=== PATIENT | female | born 1955 | race American Indian/Alaskan Native ===

== ENCOUNTER 2017-10-21 11:01 | Inpatient (IN) | payer OTHER ==
[2017-10-21] MEDS ORDERED: ASPIRIN PO ONE (11:18)
[2017-10-21] MEDS ORDERED: XYLOCAINE 2% INFILTRATI ONE (11:24)
[2017-10-21] MEDS ORDERED: HEPARIN 10,000 UNITS/10 ML ONE (11:24)
[2017-10-21] MEDS ORDERED: NITROGLYCERIN SYRINGE 0 ML ONE (11:24)
[2017-10-21] MEDS ORDERED: SUBLIMAZE ONE (11:25)
[2017-10-21] MEDS ORDERED: NACL 0.9% 1000 ML 1,000 ML ONE ×2 (11:25→14:07)
[2017-10-21] MEDS ORDERED: VERSED ONE (11:25)
[2017-10-21] MEDS ORDERED: ANGIOMAX IV ONE (11:26)
--- NOTE | 2017-10-21 11:31 | Emergency Department Report ---
ED Chest Pain HPI - General Chief Complaint: Chest Pain Stated Complaint: C/P Time Seen by Provider: 10/21/17 11:23 Source: patient Mode of arrival: Ambulatory Limitations: No Limitations - History of Present Illness Initial Comments: Patient admits to chest pain that woke her up at about 6 AM. She stated she also did have some discomfort on but it wasn't as severe. She came to triage whereupon an EKG was performed. It was brought to me and it was immediately identified as a inferior wall STEMI. The patient was brought back directly from triage. A code STEMI was called. Patient tells me that her pain was associated with sweating this morning and some breathing difficulty. She is not in respiratory distress at this time. She has a history of hypertension and does smoke. She is not compliant with her blood pressure medications. She states that she was treated here approximately 10 years ago for what sounds like a possible demand myocardial infarction associated with dysfunctional uterine bleeding and profound anemia. However, [facility] does not provide access to this record. Nurse practitioner Aracelis of [facility] came to the emergency department quite directly. The patient is in route to the Carpet Cutter at this time. The EKGs had been tested to Dr. Dixon. Complaint: chest pain -: This morning Onset: awoke with symptoms Pain Location: substernal Severity: moderate, severe Quality: tightness Consistency: constant Improves With: nothing Worsens With: nothing re: dyspnea Aspirin use within the Past 7 Days: (0) No - Related Data Allergies Allergy/AdvReac Type Severity Reaction Status Date / Time No Known Allergies Allergy Verified 10/21/17 11:23 Heart Score - HEART Score History: Highly suspicious EKG: Significant ST-depression Age: 45-65 Risk factors: > 3 risk factors or hx of atherosclerotic disease Troponin: < normal limit HEART Score: 7 - Critical Actions Critical Actions: >7 pts:50-65% risk of adverse cardiac event. Early invasive measures ED Review of Systems ROS: Stated complaint: C/P Other details as noted in HPI Constitutional: denies: chills, fever Eyes: denies: eye pain, eye discharge, vision change ENT: denies: ear pain, throat pain Respiratory: denies: cough, shortness of breath, wheezing Cardiovascular: chest pain, dyspnea on exertion. denies: palpitations Endocrine: no symptoms reported Gastrointestinal: denies: abdominal pain, nausea, diarrhea Genitourinary: denies: urgency, dysuria, discharge Musculoskeletal: denies: back pain, joint swelling, arthralgia Skin: denies: rash, lesions Neurological: denies: headache, weakness, paresthesias Psychiatric: denies: anxiety, depression Hematological/Lymphatic: denies: easy bleeding, easy bruising ED Past Medical Hx - Past Medical History Previous Medical History?: Yes Hx Hypertension: Yes Hx Heart Attack/AMI: Yes - Surgical History Past Surgical History?: No - Social History Smoking Status: Current Every Day Smoker Substance Use Type: Alcohol ED Physical Exam - General Limitations: No Limitations General appearance: alert, in no apparent distress - Head Head exam: Present: atraumatic, normocephalic - Eye Eye exam: Present: normal appearance - ENT ENT exam: Present: mucous membranes moist - Neck Neck exam: Present: normal inspection - Respiratory Respiratory exam: Present: normal lung sounds bilaterally. Absent: respiratory distress - Cardiovascular Cardiovascular Exam: Present: regular rate, normal rhythm. Absent: systolic murmur, diastolic murmur, rubs, gallop - GI/Abdominal GI/Abdominal exam: Present: soft, normal bowel sounds. Absent: distended, tenderness, guarding, rebound - Extremities Exam Extremities exam: Present: normal inspection - Back Exam Back exam: Present: normal inspection - Neurological Exam Neurological exam: Present: alert, oriented X3, CN II-XII intact. Absent: motor sensory deficit - Psychiatric Psychiatric exam: Present: normal affect, normal mood - Skin Skin exam: Present: warm, dry, intact, normal color. Absent: rash ED Course - Reevaluation(s) Reevaluation #1: Code STEMI protocol. Patient sent to the Carpet Cutter. [facility] they will admit patient. 10/21/17 11:33 IMTIAZ score - Imtiaz Score Age > 65: (0) No Aspirin use within the Past 7 Days: (0) No 3 or more CAD Risk Factors: (1) Yes 2 or more Angina events in past 24 hrs: (0) No Known CAD with more than 50% Stenosis: (0) No Elevated Cardiac Markers: (0) No ST Deviation Greater than 0.5mm: (0) No IMTIAZ Score: 1 ED Medical Decision Making - EKG Data -: EKG Interpreted by Me - EKG Data Interpretation: other (inferior STEMI) - Medical Decision Making Heart score and IMTIAZ score are really not applicable here. Patient with acute ST elevation SC sent to wood preserving plant laborer. Critical care attestation.: If time is entered above; I have spent that time in minutes in the direct care of this critically ill patient, excluding procedure time. ED Disposition Clinical Impression: ST elevation myocardial infarction (STEMI) of inferior wall Disposition: 09 OP ADMIT IP TO THIS HOSP Is pt being admited?: Yes Does the pt Need Aspirin: Yes Condition: Stable Time of Disposition: 11:35
[2017-10-21 11:32] LABS: Basophils % (Auto) 0.2 % (0.0-1.8); Hematocrit 51.7 % (30.3-42.9); Hemoglobin 16.6 gm/dl (10.1-14.3); Lymphocytes # (Auto) 0.9 K/mm3 (1.2-5.4); Lymphocytes % (Auto) 6.3 % (13.4-35.0); Mean Corpuscular HGB Conc 32 % (30-34); Mean Corpuscular Hemoglobin 31 pg (28-32); Mean Corpuscular Volume 96 fl (79-97); Monocytes # (Auto) 0.5 K/mm3 (0.0-0.8); Monocytes % (Auto) 3.9 % (0.0-7.3); Platelet Count 245 K/mm3 (140-440); Red Blood Count 5.39 M/mm3 (3.65-5.03)
[2017-10-21] MEDS ORDERED: HEPARIN 10,000 UNITS/10 ML IV ONE ×2 (11:45→12:00)
[2017-10-21] MEDS ORDERED: HEPARIN IV ONE (11:46)
[2017-10-21 11:51] LABS: BUN/Creatinine Ratio 12; Blood Urea Nitrogen 6 mg/dL (7-17); Calcium 9.5 mg/dL (8.4-10.2); Hemolysis Index 32
[2017-10-21] MEDS ORDERED: AGGRASTAT DRIP (12.5 MG/250 ML) 12,500 MCG/250 ML BAG IV ONE (11:53)
[2017-10-21] MEDS ORDERED: INTROPIN DRIP 800 MG/D5W 250 ML IV ONE ×2 (12:10→15:00)
[2017-10-21] MEDS ORDERED: ZOFRAN IV PRN (12:19)
--- NOTE | 2017-10-21 12:26 | History and Physical Report ---
History of Present Illness Date of examination: 10/21/17 Date of admission: 10/21/2017 Chief complaint: chest pain History of present illness: The pt is a 61 YO female with a past medical history significant for HTN, tobacco use and ETOH use. She is previously unknown to our practice. She presented with c/o chest pain which woke her up at about 6 AM this morning. She describes the pain as a nonexertional, nonradiating left-sided pressure which is a 9/10 on a 0-10 numerical pain scale. She stated she also did have some discomfort on but it wasn't as severe. The pain is associated with some SOB and diaphoresis. She came to triage where an EKG was performed which revealed ST elevations in inferior leads and code STEMI was activated. Pt was taken to cardiac cath rn for emergent coronary angiography and subsequently underwent PCI with BMS to RCA. During cardiac catheterization, pt developed sinus bradycardia with hypotension and thus transvenous pacemaker was inserted and pt was initiated on dopamine gtt. Of note, pt reports a history of anemia associated with uterine bleeding with possible demand myocardial infarction 10 years ago at [facility]. She denies undergoing cardiac catheterization at that time. She states that she was evaluated by a bean picker and was told that no intervention was required. There are no records of this encounter in [facility]. Past History Past Medical History: hypertension Past Surgical History: No surgical history Social history: , lives with family, smoking, alcohol abuse. denies: prescription drug abuse Family history: no significant family history Medications and Allergies Allergies Allergy/AdvReac Type Severity Reaction Status Date / Time No Known Allergies Allergy Verified 10/21/17 11:23 Active Meds: Active Medications Aspirin (Ecotrin) 325 mg PO QDAY [facility] Ondansetron HCl (Zofran) 4 mg IV Q8H PRN PRN Reason: N/V unrelieved by Reglan Prasugrel (Effient) 10 mg PO QDAY [facility] Review of Systems Constitutional: no weight loss, no weight gain, no fever, no chills Ears, nose, mouth and throat: no ear pain, no nose pain, no sinus pressure, no sinus pain Cardiovascular: chest pain, shortness of breath, high blood pressure, no orthopnea, no palpitations, no rapid/irregular heart beat, no edema, no syncope , no lightheadedness, no leg edema, no decreased exercise tolerance Respiratory: no cough, no congestion, no wheezing, no pain on inspiration Gastrointestinal: no abdominal pain, no nausea, no vomiting, no diarrhea, no constipation, no change in bowel habits Genitourinary Female: no pelvic pain, no flank pain, no dysuria, no urinary frequency, no urgency Musculoskeletal: no neck stiffness, no neck pain, no shooting arm pain, no arm numbness/tingling, no low back pain, no shooting leg pain, no leg numbness/ tingling, no redness of joints Integumentary: no rash, no pruritis, no redness, no sores, no wounds Neurological: no head injury, no paralysis, no weakness, no parathesias, no numbness, no tingling, no seizures, no syncope Psychiatric: no anxiety Endocrine: no cold intolerance, no heat intolerance Hematologic/Lymphatic: no easy bruising, no easy bleeding, no lymphadenopathy Allergic/Immunologic: no urticaria, no wheezing, no persistent infections Physical Examination Vital Signs Temp Pulse Resp BP Pulse Ox 98.6 F 97 H 14 180/98 100 10/21/17 11:38 10/21/17 11:38 10/21/17 11:38 10/21/17 11:38 10/21/17 11:38 General appearance: mild distress, other (agitated) HEENT: Positive: PERRL Neck: Positive: neck supple, trachea midline Cardiac: Positive: Reg Rate and Rhythm, S1/S2 Lungs: Positive: clear to auscultation Neuro: Positive: Grossly Intact, Cranial Nerve 2-12 Intact Abdomen: Positive: Unremarkable, Soft, Active Bowel Sounds. Negative: Tender Skin: Positive: Clear. Negative: Rash, Wound Musculoskeletal: No Fluid Collection, No Pain, Normal Range of Motion Extremities: Absent: edema Results 10/21/17 11:24 10/21/17 11:24 CBC 10/21/17 Range/Units 11:24 WBC 13.6 H (4.5-11.0) K/mm3 RBC 5.39 H (3.65-5.03) M/mm3 Hgb 16.6 H (10.1-14.3) gm/dl Hct 51.7 H (30.3-42.9) % Plt Count 245 (140-440) K/mm3 Lymph # 0.9 L (1.2-5.4) K/mm3 [place] # 0.5 (0.0-0.8) K/mm3 Eos # 0.0 (0.0-0.4) K/mm3 Baso # 0.0 (0.0-0.1) K/mm3 Comprehensive Metabolic Panel 10/21/17 Range/Units 11:24 Sodium 145 (137-145) mmol/L Potassium 4.1 (3.6-5.0) mmol/L Chloride 105.8 (98-107) mmol/L Carbon Dioxide 24 (22-30) mmol/L BUN 6 L (7-17) mg/dL Creatinine 0.5 L (0.7-1.2) mg/dL Glucose 155 H (65-100) mg/dL Calcium 9.5 (8.4-10.2) mg/dL - Imaging and Cardiology Echo: pending Cardiac cath: report reviewed (PCI to RCA) EKG: report reviewed, image reviewed EKG interpretations - Telemetry EKG Rhythm: Sinus Rhythm - EKG Sinus rhythms and dysrhythmias: sinus rhythm Myocardial infarction: inferior ID (acute or rec Assessment and Plan Assessment: Acute inferior STEMI 10/21/2017 CAD s/p PCI to RCA with BMS Sinus bradycardia - TVP in situ Hypotension - requiring dopamine gtt H/o HTN Tobacco use / ETOH use - cessation encouraged Plan: s/p C with PCI of RCA. Admit to CCU. Consult foreign collection clerk, Dr. Thomas Cont dopamine gtt. Wean off for SBP <100. Consider discontinuation of TVP this afternoon if HR improves. Obtain echo. Initiate DAPT with ASA 325 and effient. Initiate lipitor. Obtain lipid panel in AM. Hold BB and ACEI/ARB at this time given SB and hypotension. Assessment and plan reviewed with pt and pt's at bedside. The patient has been seen in conjunction with Dr. Tesfaye Dixon who agrees with the assessment and plan of care.
[2017-10-21] MEDS ORDERED: EFFIENT PO ONE ×2 (12:33→12:36)
[2017-10-21] MEDS ORDERED: INTROPIN DRIP 800 MG/D5W 250 ML 800 MG/250 ML BAG IV SCH (13:00)
[2017-10-21] MEDS ORDERED: NACL 0.9% 1000 ML 1,000 ML IV SCH (13:00)
--- NOTE | 2017-10-21 15:18 | Event Note ---
Patient is seen again to see whether temporary pace maker can discontinued. SR at 88/m BP 160/90. 4 beat run of VT Isolated PVCs. Plan; DC pacer. Start Beta deisi. Dr. Montemayor.
--- NOTE | 2017-10-21 16:10 | Consultation ---
History of Present Illness Consult date: 10/21/17 Requesting physician: GLADYS VARGAS Reason for consult: other (STEMI) History of present illness: PULMONARY/CCM CONSULT NOTE (Full dictation # [id number]) Please see dictated notes for full details Past History Past Medical History: hypertension Past Surgical History: No surgical history Social history: , lives with family, smoking, alcohol abuse. denies: prescription drug abuse Family history: no significant family history Medications and Allergies Allergies Allergy/AdvReac Type Severity Reaction Status Date / Time No Known Allergies Allergy Verified 10/21/17 11:23 Home Medications Medication Instructions Recorded Confirmed Last Taken Type No Known Home Medications [No 10/21/17 10/21/17 Unknown History Reported Home Medications] Active Meds: Active Medications Aspirin (Ecotrin) 325 mg PO QDAY [facility] Atorvastatin Calcium (Lipitor) 80 mg PO QHS [facility] Dopamine HCl/Dextrose (Intropin Drip 800 Mg/D5w 250 Ml) 800 mg in 250 mls @ 2.807 mls/hr IV TITR [facility]; 2 MCG/KG/MIN PRN Reason: Protocol Sodium Chloride (Nacl 0.9% 1000 Ml) 1,000 mls @ 50 mls/hr IV DIRECT [facility] Lisinopril (Zestril) 20 mg PO QDAY [facility] Metoprolol Tartrate (Lopressor) 25 mg PO BID [facility] Ondansetron HCl (Zofran) 4 mg IV Q8H PRN PRN Reason: N/V unrelieved by Reglan Prasugrel (Effient) 10 mg PO QDAY [facility] Physical Examination Vital signs: Vital Signs Temp Pulse Resp BP Pulse Ox 98.6 F 97 H 14 180/98 100 10/21/17 11:38 10/21/17 11:38 10/21/17 11:38 10/21/17 11:38 10/21/17 11:38 Results - Laboratory Findings CBC and BMP: 10/21/17 11:24 10/21/17 11:24 Abnormal lab findings: Abnormal Labs 10/21/17 10/21/17 10/21/17 11:24 11:24 11:47 WBC 13.6 H RBC 5.39 H Hgb 16.6 H Hct 51.7 H RDW 16.0 H Lymph % (Auto) 6.3 L Lymph # 0.9 L Seg Neutrophils % 89.6 H Seg Neutrophils # 12.2 H Activated Clotting Time 191 H BUN 6 L Creatinine 0.5 L Glucose 155 H Troponin T 10/21/17 10/21/17 12:05 14:41 WBC RBC Hgb Hct RDW Lymph % (Auto) Lymph # Seg Neutrophils % Seg Neutrophils # Activated Clotting Time 345 H BUN Creatinine Glucose Troponin T 2.430 H* D
--- NOTE | 2017-10-21 16:17 | Cardiac Catherization Report ---
INDICATION FOR PROCEDURE: The patient is a pleasant 61-year-old female who presents with inferior ST elevation myocardial infarction. STEMI protocol initiated. The patient loaded with aspirin and heparin. The patient referred for urgent left heart catheterization via STEMI protocol. PROCEDURE IN DETAIL: The patient was brought to the yard labor supervisor in urgent prepped and draped in sterile fashion, 8 mL of 2% lidocaine used to anesthetize the right groin. Access was achieved in the right common femoral artery and right femoral vein via modified Seldinger techniques under fluoroscopic guidance. At this point, the patient is bradycardic and mildly hypertensive. We placed a balloon tipped temporary venous pacemaker under fluoroscopic guidance in the apex of the right ventricle, started pacing. Had a backup heart rate of 60. Angiography was performed. A JL 3-1/2 catheter was used in the left main. No dampening or ventricularization. Cineangiography performed in all projections. A JR4 guide used to engage the right coronary. Cineangiography performed. DATA: The patient remained in a paced rhythm with a backup rate of 50%, aortic pressure in the 120s. ANGIOGRAPHY: Left main reveals no significant disease, bifurcates left anterior descending and left circumflex. LAD is a moderate sized vessel, courses anterior intergroove, wraps around the apex. Scattered luminal irregularities 40% to 50% mid LAD, but very small vessel. May be a component of spasm here. Left circumflex is a moderate sized vessel, courses AV groove. No significant disease. Right coronary is flush occluded in the mid segment with angiographic characteristics of atherothrombosis. At this point, additional heparin was given. Abnormal ACT confirmed. The patient loaded with aspirin. We used a [place] wire to cross the lesion without difficulty. Resumption of FROY 3 flow 2.5 x 12 balloon to predilate the lesion with a 2.75 x 18 Integrity bare-metal stent deployed at 9 JAMAR for 30 seconds. Excellent angiographic result. Intravascular ultrasound reveals a well-opposed well expanded stent. Normal proximally. No occlusive disease proximally. No dissection at the proximal or distal edge of the stent. CONCLUSIONS: 1. Moderate diffuse small vessel disease distally. 2. Left ventriculography performed with the same guide reveals basal inferior hypokinesis with preserved ejection fraction overall of 50% to 55%. No evidence of aortic stenosis. At this point, the procedure was aborted. The patient is chest pain-free and clinically improved. CONCLUSIONS: 1. Severe single vessel disease with a atherothrombotic occlusion of the mid right coronary in the setting of an inferior ST elevation myocardial infarction, late presentation. 2. Successful IVUS guided primary PCI with placement of bare metal stent 2.75 x 18 Integrity with excellent final angiographic and ultrasonographic results. Moderate diffuse small vessel disease in the distal right coronary. Mild nonobstructive disease in the left system. 3. Left ventriculography revealed a basal inferior dyskinesis with estimated ejection fraction of 50% to 55%. 4. Successful right femoral venous access and transvenous pacemaker placed under fluoroscopic guidance. At this point, the patient is clinically stable on low-dose dopamine with her own rhythm, blood pressure is normalized. We will pull sheath once the ACT is less than 170. Consider pulling pacemaker later this afternoon, high dose statin therapy, aspirin and Effient. The patient received 1 bolus of Aggrastat due to thrombus burden. The patient is clinically vastly improved. We will watch her closely in the hospital. JOB# [id number] SBRadha/NTS
[2017-10-21] MEDS: LOPRESSOR PO SCH ×2 (16:25→22:47)
[2017-10-21] MEDS: ZESTRIL PO SCH (16:37)
[2017-10-21 16:38] LABS: Chol/HDL Ratio 4.94 %
--- NOTE | 2017-10-22 02:51 | XRay Report ---
FINAL REPORT EXAM: XR CHEST 1V AP HISTORY: post pci TECHNIQUE: A portable upright view the chest was obtained. FINDINGS: The heart size is at the upper limits of normal. The lungs are clear. Pleural fluid is not seen. There is no evidence of congestion. The bones and soft tissues do not show any acute changes. IMPRESSION: No active chest disease.
[2017-10-22 05:51] LABS: Basophils % (Auto) 0.3 % (0.0-1.8); Eosinophils % (Auto) 0.2 % (0.0-4.3); Hemoglobin 14.4 gm/dl (10.1-14.3); Lymphocytes # (Auto) 2.5 K/mm3 (1.2-5.4); Lymphocytes % (Auto) 18.5 % (13.4-35.0); Mean Corpuscular HGB Conc 32 % (30-34); Mean Corpuscular Hemoglobin 30 pg (28-32); Mean Corpuscular Volume 95 fl (79-97); Monocytes # (Auto) 1.1 K/mm3 (0.0-0.8); Monocytes % (Auto) 8.2 % (0.0-7.3); Platelet Count 224 K/mm3 (140-440); Red Blood Count 4.74 M/mm3 (3.65-5.03)
[2017-10-22 06:09] LABS: Creatine Kinase MB 256.7 ng/mL (0.0-4.0)
[2017-10-22 06:11] LABS: Albumin 3.8 g/dL (3.9-5); BUN/Creatinine Ratio 16; Blood Urea Nitrogen 8 mg/dL (7-17); Hemolysis Index 171
[2017-10-22 06:52] LABS: Alanine Aminotransferase 50 units/L (7-56); Calcium 8.8 mg/dL (8.4-10.2)
[2017-10-22] MEDS: ECOTRIN PO SCH (09:14)
[2017-10-22] MEDS: EFFIENT PO SCH (09:14)
[2017-10-22] MEDS: ZESTRIL PO SCH (09:14)
[2017-10-22] MEDS: LOPRESSOR PO SCH ×2 (09:14→21:37)
[2017-10-22] MEDS: PEPCID PO SCH (09:14)
--- NOTE | 2017-10-22 10:21 | Progress Note ---
Assessment and Plan Assessment: Acute inferior STEMI 10/21/2017 CAD s/p PCI to RCA with BMS Transient sinus bradycardia - TVP d/c'd; resolved Transient hypotension - resolved H/o HTN Tobacco use / ETOH use - cessation encouraged Plan: Currently stable cardiac status. Tx pt out of CCU to telemetry. Likely discharge home in AM. Await echo. Cont DAPT with ASA 325 and effient. Cont lopressor and lipitor. Pt refusing lisinopril - she states that she has a friend who experienced an allergic reaction to this medication and she has also been reading about the side effects of this medication online and is not comfortable taking this medication. Will initiate losartan. Assessment and plan reviewed with pt at bedside. The patient has been seen in conjunction with Dr. Gan who agrees with the assessment and plan of care. Subjective Date of service: 10/22/17 Principal diagnosis: STEMI Interval history: Pt resting comfortably in bed, no current complaints. VSS. Tele reviewed with no acute events overnight. Objective Last Vital Signs Temp 98.3 F 10/22/17 08:00 Pulse 62 10/22/17 05:01 Resp 24 10/22/17 05:01 BP 139/68 10/22/17 05:01 Pulse Ox 97 10/22/17 05:01 - Physical Examination General: No Apparent Distress HEENT: Positive: PERRL Neck: Positive: neck supple, trachea midline Cardiac: Positive: Reg Rate and Rhythm, S1/S2 Lungs: Positive: clear to auscultation Neuro: Positive: Grossly Intact, Cranial Nerve 2-12 Intact Abdomen: Positive: Unremarkable, Soft, Active Bowel Sounds. Negative: Tender Skin: Positive: Clear. Negative: Rash, Wound Incision: Cardiac Cath Site (right groin, c/d/i, no evidence of bleeding or hematoma) Musculoskeletal: No Fluid Collection, No Pain, Normal Range of Motion Extremities: Absent: edema - Labs and Meds Cardiac Enzymes 10/22/17 Range/Units 04:56 AST 259 H (5-40) units/L CK-MB (CK-2) 256.7 H (0.0-4.0) ng/mL Lipids 10/21/17 Range/Units 14:41 Triglycerides 94 (2-149) mg/dL Cholesterol 188 (50-199) mg/dL HDL Cholesterol 38 L (40-59) mg/dL Cholesterol/HDL Ratio 4.94 % CBC 10/21/17 10/22/17 Range/Units 11:24 04:56 WBC 13.6 H 13.7 H (4.5-11.0) K/mm3 RBC 5.39 H 4.74 (3.65-5.03) M/mm3 Hgb 16.6 H 14.4 H (10.1-14.3) gm/dl Hct 51.7 H 45.0 H D (30.3-42.9) % Plt Count 245 224 (140-440) K/mm3 Lymph # 0.9 L 2.5 (1.2-5.4) K/mm3 [place] # 0.5 1.1 H (0.0-0.8) K/mm3 Eos # 0.0 0.0 (0.0-0.4) K/mm3 Baso # 0.0 0.0 (0.0-0.1) K/mm3 Comprehensive Metabolic Panel 10/21/17 10/22/17 Range/Units 11:24 04:56 Sodium 145 142 (137-145) mmol/L Potassium 4.1 4.9 (3.6-5.0) mmol/L Chloride 105.8 105.7 (98-107) mmol/L Carbon Dioxide 24 22 (22-30) mmol/L BUN 6 L 8 (7-17) mg/dL Creatinine 0.5 L 0.5 L (0.7-1.2) mg/dL Glucose 155 H 96 (65-100) mg/dL Calcium 9.5 8.8 (8.4-10.2) mg/dL AST 259 H (5-40) units/L ALT 50 (7-56) units/L Alkaline Phosphatase 71 (35-129) units/L Total Protein 6.4 (6.3-8.2) g/dL Albumin 3.8 L (3.9-5) g/dL - Imaging and Cardiology EKG: report reviewed, image reviewed Echo: pending Cardiac cath: report reviewed (PCI to RCA) - Telemetry EKG Rhythm: Sinus Rhythm - EKG Sinus rhythms and dysrhythmias: sinus rhythm Myocardial infarction: inferior IN (acute or rec
--- NOTE | 2017-10-22 13:49 | Event Note ---
Date: 10/22/17 The pt is a 61 YO female with a past medical history significant for HTN, tobacco use and ETOH use. She is previously unknown to our practice. She presented with c/o chest pain which woke her up at about 6 AM this morning. She describes the pain as a nonexertional, nonradiating left-sided pressure which is a 9/10 on a 0-10 numerical pain scale. She stated she also did have some discomfort on but it wasn't as severe. The pain is associated with some SOB and diaphoresis. She came to triage where an EKG was performed which revealed ST elevations in inferior leads and code STEMI was activated. Pt was taken to laborer for emergent coronary angiography and subsequently underwent PCI with BMS to RCA. During cardiac catheterization, pt developed sinus bradycardia with hypotension and thus transvenous pacemaker was inserted and pt was initiated on dopamine infusion. Patient is s/p PCI and in the ICU. She denies any chest pain. Feels much better. Had breakfast. Patient was seen and examined. Vitals, labs, medications, chart reviewed. No acute overnight events. General: No Apparent Distress HEENT: Positive: PERRL Neck: Positive: neck supple, trachea midline Cardiac: Positive: Reg Rate and Rhythm, S1/S2 Lungs: Positive: clear to auscultation Neuro: Positive: Grossly Intact, Cranial Nerve 2-12 Intact Abdomen: Positive: Unremarkable, Soft, Active Bowel Sounds. Negative: Tender Skin: Positive: Clear. Negative: Rash, Wound Incision: Cardiac Cath Site (right groin, c/d/i, no evidence of bleeding or hematoma) Musculoskeletal: No Fluid Collection, No Pain, Normal Range of Motion Extremities: Absent: edema A/P -Inferior wall [place] s/p PCI -Tobacco abuse disorder Cardioprotective measures Smoking cessation counselling done at the bedside Stable for transfer to telemetry
[2017-10-22] MEDS: COZAAR PO SCH (17:49)
--- NOTE | 2017-10-22 21:12 | Consultation ---
PULMONARY CRITICAL CARE CONSULT NOTE CONSULTING PHYSICIAN: ____ for Dr. Dixon. REASON FOR CONSULTATION: Acute ST elevation myocardial infarction, status post PTCA and stenting. CHIEF COMPLAINT AND HISTORY OF PRESENT ILLNESS: The patient is a 61-year-old obese -Citizen Of [place] female who states that in the past couple of days, she has had 1 or 2 burning sensations in her chest, thought nothing about it. She woke up this morning with intense burning sensation on her chest. She tried to get up and found she was weak and dizzy. She got back down, called EMS. EKG revealed an inferior wall ST elevation [place]. Code STEMI was called. She was brought into the Emergency Room and taken ____ to the lab instructor. In the lab instructor, coronary angiography revealed RCA occlusion. She received PCI with a bare metal stent to the RCA. She had episodes of sinus bradycardia with hypotension for which a transvenous pacemaker was inserted. She was also initiated on a dopamine drip. Post procedure, ICU admission was requested. When I stopped by to see her, she was doing better. Pain was gone. She had just been weaned off the dopamine drip. She was able to take the p.o. medication she had been given; however, she refused taking an angiotensin converting enzyme because she was scared of a possible angioedema type reaction. She admits to a 10+ pack year tobacco smoking history and plans to quit smoking. Her last cigarette was yesterday. This really is as much of the history of presentation as I have. PAST MEDICAL HISTORY: Hypertension. She is obese. PAST SURGICAL HISTORY: Denies. MEDICATIONS: She was on at the time I stopped by to see were reviewed, pertinent medications included aspirin 325 mg p.o. daily, Lipitor 80 mg p.o. at bedtime, Zestril 20 mg p.o. daily, Lopressor 25 mg p.o. b.i.d., Zofran 4 mg IV every 8 hours p.r.n., and prasugrel 10 mg p.o. daily. ALLERGIES: No known drug allergies. DIET: Obese lady. She denies acute weight loss or gain in the preceding few weeks to months. SOCIAL HISTORY: Lives in the community about a [id number] tobacco smoking history. Denies alcohol, illicit drug use or abuse, but she does admit to taking alcohol. FAMILY HISTORY: Otherwise noncontributory. REVIEW OF SYSTEMS: No loss of consciousness. She did have the dizziness. No new onset seizures. No new onset focal weakness. No gross hematochezia or melena. No gross hematuria, no hematemesis, no hemoptysis or other bleeding diathesis. A complete 13-system review of systems was obtained. Pertinent positives and/or negatives as in body of the history above, otherwise, they are noncontributory. PHYSICAL EXAMINATION: VITAL SIGNS: At presentation, she was afebrile, temperature 98.6 degrees Fahrenheit, pulse of 97, respiratory rate of 14, blood pressure 180/98, oxygen sats 100%, inspired oxygen concentration was not recorded. GENERAL: She is an elderly looking -Citizen [place] female, normocephalic, atraumatic, looks her stated age, talking to me in full sentences, in no significant respiratory distress. HEAD, EYES, EARS, NOSE AND THROAT: She is anicteric. No conjunctival erythema. Oropharynx is a Mallampati #4 oropharynx. No significant posterior oropharyngeal erythema or pallor. Oropharynx is moist. NECK: Grossly, no jugular venous distention. Grossly, no palpable lymph nodes in the supraclavicular or submandibular lymph node chains. LUNGS: Auscultation of both lung bailey is unremarkable. Lungs are clear bilaterally. HEART: Heart sounds 1 and 2 are heard, regular rate and rhythm at the time of my evaluation. No rubs, no murmurs. ABDOMEN: Soft, full, bowel sounds are positive, nontender. EXTREMITIES: Without overt digital clubbing, cyanosis, or pedal edema. Dorsalis pedis pulses are palpable bilaterally. NEUROLOGIC: Pupils are equal, round, reactive to light. Extraocular muscles and movements are intact. She moves all 4 extremities spontaneously. The skin is of normal turgor, no tenting, no cellulitis, no rash. DIAGNOSTIC DATA: Chest x-ray, I do not have a chest x-ray for review that is pending. LABORATORY DATA: From my review, admission white cell count 13,600, hemoglobin 16.6, hematocrit 51.7, platelet count 245. Serum sodium was 141, potassium 4.1, chloride 106, bicarbonate 24, BUN 6, creatinine 0.5, glucose 155. Troponin so far has peaked at 2.43, it was within normal limits at presentation. ASSESSMENT: 1. Acute ST elevation myocardial infarction, inferior ST elevation. 2. Coronary artery disease. 3. Morbid obesity. 4. Uncontrolled hypertension. 5. Tobacco use disorder. 6. Episode of hypotension requiring dopamine. 7. Symptomatic bradycardia, status post transvenous pacemaker. PLAN: Admit to the Intensive Care Unit and observe overnight. I have asked the nurse to get in touch with the felt cementer, as blood pressure is still high, and she is refusing the lisinopril, see if another medication can be substituted. Oxygen will be given as necessary to keep sats greater than or equal to about 92-94%. Aspiration precautions will be maintained. Sleep Clinic evaluation has been recommended in light of the possibility of obstructive sleep apnea in the setting of coronary artery disease and cardiomyopathy. Tobacco cessation has been strongly counseled. She will be started on GI prophylaxis. Flu and pneumonia vaccination will be per protocol. She will also be started on DVT prophylaxis once cleared by Cardiology. Thank you very much for the consult. We will follow along. We will make further recommendations as picture progresses/becomes clearer. JOB# [id number] JAKE/CUATE
[2017-10-23] MEDS: ECOTRIN PO SCH (09:15)
[2017-10-23] MEDS: COZAAR PO SCH (09:15)
[2017-10-23] MEDS: EFFIENT PO SCH (09:16)
[2017-10-23] MEDS: LOPRESSOR PO SCH (09:16)
[2017-10-23] MEDS: PEPCID PO SCH (09:16)
--- NOTE | 2017-10-23 11:50 | Progress Note ---
Assessment and Plan Assessment: Acute inferior STEMI 10/21/2017 CAD s/p PCI to RCA with BMS Transient sinus bradycardia - TVP d/c'd; resolved Transient hypotension - resolved HTN Tobacco use / ETOH use - cessation encouraged Plan: Currently stable cardiac status. Optimize anti-hypertensive regimen. Convert Effient to Plavix as pt is self pay. Give 150mg loading dose of Plavix x1 dose now and initiate 75mg daily from tomorrow. Possible d/c home this afternoon pending BPs are optimized. Assessment and plan reviewed with pt at bedside. The patient has been seen in conjunction with Dr. Gan who agrees with the assessment and plan of care. Subjective Date of service: 10/23/17 Principal diagnosis: STEMI Interval history: Pt resting comfortably in bed, no current complaints. BPs elevated. Objective Last Vital Signs Temp 99.3 F 10/22/17 23:45 Pulse 78 10/23/17 09:16 Resp 18 10/22/17 23:45 BP 169/83 10/23/17 09:16 Pulse Ox 97 10/22/17 23:45 - Physical Examination General: No Apparent Distress HEENT: Positive: PERRL Neck: Positive: neck supple, trachea midline Cardiac: Positive: Reg Rate and Rhythm, S1/S2 Lungs: Positive: clear to auscultation Neuro: Positive: Grossly Intact, Cranial Nerve 2-12 Intact Abdomen: Positive: Unremarkable, Soft, Active Bowel Sounds. Negative: Tender Skin: Positive: Clear. Negative: Rash, Wound Incision: Cardiac Cath Site (right groin, c/d/i, no evidence of bleeding or hematoma) Musculoskeletal: No Fluid Collection, No Pain, Normal Range of Motion Extremities: Absent: edema - Imaging and Cardiology EKG: report reviewed, image reviewed Echo: report reviewed (EF 50-55%, basal inferior wall segment is dyskinetic, trace MR, mild TR) Cardiac cath: report reviewed (PCI to RCA) - Telemetry EKG Rhythm: Sinus Rhythm - EKG Sinus rhythms and dysrhythmias: sinus rhythm Myocardial infarction: inferior SC (acute or rec
[2017-10-23] MEDS ORDERED: PLAVIX PO ONE (12:10)
[2017-10-23 12:33] VITALS: BP 157/75
[2017-10-23] MEDS ORDERED: COZAAR PO ONE (12:47)
[2017-10-23] MEDS ORDERED: PLAVIX PO NR (13:00)
--- NOTE | 2017-10-23 13:30 | Discharge Summary ---
Providers - Providers Date of Admission: 10/21/17 12:19 Date of discharge: 10/23/17 Attending physician: YOLA DIXON 10/21/17 Consult to Cardiac Rehabilitation [CONS] Routine Reason For Exam: post pci 10/21/17 12:22 Consult to Physician [CONS] Routine Consulting Provider: JOSE LITTLE Reason For Exam: CCU care s/p STEMI Place consult to:: Dr. Damon aware prior to pt. arrival CCU per .Tracy.BSA Notified:: 1919 Phone number called:: In person Was contact made?: Yes If yes, spoke with:: Dr. Damon Time called:: 19:20 Comment:: Dr. 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 EKG showed ST elevations in inferior leads and she was taken to research laboratory specialist for emergent coronary angiography per STEMI protocol. She successfully underwent LHC with PCI to RCA with BMS. She transiently experienced sinus bradycardia and hypotension and required TVP and dopamine gtt which were later discontinued after issues resolved. She remained clinically and hemodynamically stable throughout the remainder of her hospitalization and is medically stable for discharge home today. She is to follow up with Dr. Tesfaye Dixon in our [place] office on 11/01/2017 @ 2:00PM. Disposition: DC-01 TO HOME OR SELFCARE - Discharge Diagnoses (1) ST elevation myocardial infarction (STEMI) of inferior wall Status: Acute (2) CAD (coronary artery disease) Status: Chronic (3) Stented coronary artery Status: Chronic (4) HTN (hypertension) Status: Chronic (5) Tobacco use Status: Chronic Core Measure Documentation - Palliative Care Palliative Care/ Comfort Measures: Not Applicable - Core Measures Any of the following diagnoses?: acute FL - Acute FL Discharge Requirements Aspirin at discharge: Yes LOUIS/ARB for LVSD if EF <40%: Yes Beta deisi at discharge: Yes Statin for LDL = or >100 mg/dl on DC: Yes Exam - Constitutional Vitals: Temp Pulse Resp BP Pulse Ox 98.6 F 74 18 157/75 98 10/23/17 08:47 10/23/17 12:31 10/23/17 08:47 10/23/17 12:31 10/23/17 08:47 General appearance: Present: no acute distress - EENT Eyes: Present: PERRL, EOM intact ENT: hearing intact, clear oral mucosa, dentition normal - Neck Neck: Present: supple, normal ROM - Respiratory Respiratory effort: normal Respiratory: bilateral: CTA - Cardiovascular Rhythm: regular Heart Sounds: Present: S1 & S2 - Extremities Extremities: no ischemia, pulses intact, pulses symmetrical, No edema, normal temperature, normal color Peripheral Pulses: within normal limits - Abdominal General gastrointestinal: Present: soft, non-tender - Integumentary Integumentary: Present: clear, warm, dry - Musculoskeletal Musculoskeletal: strength equal bilaterally - Psychiatric Psychiatric: appropriate mood/affect Plan Activity: advance as tolerated Diet: low fat, low cholesterol, low salt Wound: open to air, keep clean and dry, per your surgeon's advice Follow up with: PRIMARY CARE, [Primary Care Provider] - 7 Days YOLA DIXON MD [Staff Physician] - 7 Days (Dr. Tesfaye Dixon in our [place] office on 11/01/2017 @ 2:00PM.) Prescriptions: AtorvaSTATin [Lipitor] 80 mg PO QHS #30 tablet Clopidogrel [Plavix] 75 mg PO QDAY #30 tablet Losartan [Cozaar] 25 mg PO QDAY #30 tablet Metoprolol [Lopressor TAB] 25 mg PO BID #60 tablet
[2017-10-24] MEDS ORDERED: COZAAR PO SCH (10:00)
[2017-10-24] MEDS ORDERED: PLAVIX PO SCH (10:00)
== END 2017-10-23 15:45 | disposition home or self-care (01) | DRG 249 ==
LOC: ED 11:01 → CATH 11:56 → CC1 12:19 → 4A 10-22 15:04
PROVIDERS: ADMIT Internal Medicine; ATTEND Internal Medicine
PROC: 02703DZ Dilation of Coronary Artery, One Artery with Intraluminal Device, Percutaneous Approach (ICD-10-PCS; principal; 2017-10-21)
PROC: 4A023N7 Measurement of Cardiac Sampling and Pressure, Left Heart, Percutaneous Approach (ICD-10-PCS; 2017-10-21)
PROC: B2111ZZ Fluoroscopy of Multiple Coronary Arteries using Low Osmolar Contrast (ICD-10-PCS; 2017-10-21)
PROC: B2151ZZ Fluoroscopy of Left Heart using Low Osmolar Contrast (ICD-10-PCS; 2017-10-21)
PROC: 5A1223Z Performance of Cardiac Pacing, Continuous (ICD-10-PCS; 2017-10-21)
PROC: B241ZZ3 Ultrasonography of Multiple Coronary Arteries, Intravascular (ICD-10-PCS; 2017-10-21)
DX: I21.19 ST elevation (STEMI) myocardial infarction involving other coronary artery of inferior wall (principal); I10 Essential (primary) hypertension; F17.210 Nicotine dependence, cigarettes, uncomplicated; F10.10 Alcohol abuse, uncomplicated; I95.9 Hypotension, unspecified; E66.01 Morbid (severe) obesity due to excess calories; Z71.6 Tobacco abuse counseling; I25.2 Old myocardial infarction; Z68.29 Body mass index [BMI] 29.0-29.9, adult
CPT/HCPCS: 33210; 36415; 71045; 80048; 80053; 80061; 82550; 82553; 84484; 85025; 85347; 92941; 92978; 93005; 93010; 93306; 93458; 96374; 99406; A9270-GY; C1725; C1753; C1769; C1876; C1887; C1894; J0583; J1265; J1644; J2250; J3010; J3246; J7030; Q9967